=== PATIENT | female | born 1940 | race Caucasian/White ===

== ENCOUNTER → 2021-01-12 | Outpatient (CLI) | payer MEDICARE ==
[~2021-01-12] MED LIST: ASPIR 8181 MG PO; AZO CRANBERRY1 EAC1 PO; NITROSTAT0.4 MG SL; PERCOCET 10-321 EACH PO; PERCOCET 7.5-31 EACH PO; PROZAC40 MG PO; RESTASIS 0.05%1 EACH EYEBOTH; TRAZODONE HCL100 MG PO; VITAMIN D PO
== END ==
LOC: HEART CORB 10:25
DX: R07.2 Precordial pain (principal); R06.02 Shortness of breath; R60.0 Localized edema; R00.2 Palpitations
CPT/HCPCS: 78452; A9502; J2785

== ENCOUNTER 2021-10-02 06:03 | Inpatient (IN) | payer MEDICARE ==
[~2021-10-02] VITALS: Ht 160 cm; Wt 81.6 kg
[2021-10-02 06:52] LABS: RED BLOOD COUNT 4.05 M/UL (4.00-5.10)
[2021-10-02] MEDS ORDERED: BUMETANIDE0.5 MG PO (10:56)
[2021-10-02] MEDS ORDERED: CEFUROXIME500 MG PO (10:57)
[2021-10-02] MEDS ORDERED: ACETAMINOPHEN650 M2 PO (10:58)
[2021-10-02] MEDS ORDERED: CARVEDILOL25 MG PO (11:00)
[2021-10-02] MEDS ORDERED: ELIQUIS5 MG PO (11:00)
[2021-10-02] MEDS ORDERED: HYDROCODON-ACE1 EAC6 PO (11:03)
[2021-10-02] MEDS ORDERED: VALSARTAN40 MG PO (11:05)
[2021-10-02] MEDS ORDERED: BUSPIRONE HCL7.5 MG PO (11:07)
[2021-10-02 13:57] LABS: HEMOGLOBIN 13.2 gm/dl (12.3-15.3); RED BLOOD COUNT 3.82 M/UL (4.00-5.10); WHITE BLOOD COUNT 14.4 K/UL (4.5-11.0)
[2021-10-03 00:42] LABS: WHITE BLOOD COUNT 13.3 K/UL (4.5-11.0)
[2021-10-03 00:43] LABS: RED BLOOD COUNT 3.18 M/UL (4.00-5.10)
[2021-10-04 04:48] LABS: RED BLOOD COUNT 3.16 M/UL (4.00-5.10)
[2021-10-04 04:54] LABS: WHITE BLOOD COUNT 8.5 K/UL (4.5-11.0)
[2021-10-05 01:10] LABS: RED BLOOD COUNT 3.2 M/UL (4.00-5.10); WHITE BLOOD COUNT 10.4 K/UL (4.5-11.0)
[2021-10-06 05:03] LABS: HEMOGLOBIN 12.6 gm/dl (12.3-15.3); RED BLOOD COUNT 3.65 M/UL (4.00-5.10); WHITE BLOOD COUNT 10.8 K/UL (4.5-11.0)
[2021-10-06] MEDS ORDERED: BUMETANIDE1 MG PO (16:04)
[2021-10-06] MEDS ORDERED: AMIODARONE HCL200 MG PO (16:04)
[2021-10-06] MEDS ORDERED: ASPIRIN EC81 MG PO (16:04)
[2021-10-06] MEDS ORDERED: PROTONIX 40 MG40 M1 PO (16:04)
[2021-10-06] MEDS ORDERED: CARVEDILOL3.125 MG PO ×2 (16:04→16:41)
[2021-10-06] MEDS ORDERED: CRESTOR20 MG PO (16:23)
[2021-10-06] MEDS ORDERED: K-TAB ER20 MEQ PO (16:23)
[2021-10-06] MEDS ORDERED: AMOX TR-K CLV1 EAC3 PO ×2 (16:23→16:35)
[2021-10-06] MEDS ORDERED: NITROSTAT0.4 MG SL (16:36)
[2021-10-06] MEDS ORDERED: AMOX TR-K CLV1 EAC4 PO (17:05)
== END 2021-10-06 17:47 | disposition home or self-care (01) | DRG 286 ==
LOC: ER1 06:03 → PROG CARE 08:32 → CDU 08:32 → PROG CARE 16:44
PROVIDERS: Internal Medicine; Physician Assistant; ADMIT Internal Medicine
PROC: B24BZZZ Ultrasonography of Heart with Aorta (ICD-10-PCS; principal; 2021-10-02)
PROC: B216YZZ Fluoroscopy of Right and Left Heart using Other Contrast (ICD-10-PCS; 2021-10-06)
DX: I47.2 Ventricular tachycardia (principal); I50.23 Acute on chronic systolic (congestive) heart failure; I13.0 Hypertensive heart and chronic kidney disease with heart failure and stage 1 through stage 4 chronic kidney disease, or unspecified chronic kidney disease; Z20.822 Contact with and (suspected) exposure to COVID-19; N39.0 Urinary tract infection, site not specified; I31.3 Pericardial effusion (noninflammatory); I48.91 Unspecified atrial fibrillation; Z96.698 Presence of other orthopedic joint implants; B95.2 Enterococcus as the cause of diseases classified elsewhere; F17.200 Nicotine dependence, unspecified, uncomplicated; E87.6 Hypokalemia; E11.649 Type 2 diabetes mellitus with hypoglycemia without coma; N18.30 Chronic kidney disease, stage 3 unspecified; I25.119 Atherosclerotic heart disease of native coronary artery with unspecified angina pectoris; E78.5 Hyperlipidemia, unspecified; E11.22 Type 2 diabetes mellitus with diabetic chronic kidney disease; K21.9 Gastro-esophageal reflux disease without esophagitis; R13.10 Dysphagia, unspecified; I08.1 Rheumatic disorders of both mitral and tricuspid valves; R31.29 Other microscopic hematuria; R74.01 Elevation of levels of liver transaminase levels; Z79.01 Long term (current) use of anticoagulants; Z86.73 Personal history of transient ischemic attack (TIA), and cerebral infarction without residual deficits; Z90.49 Acquired absence of other specified parts of digestive tract; Z79.82 Long term (current) use of aspirin; Z87.81 Personal history of (healed) traumatic fracture; Z80.9 Family history of malignant neoplasm, unspecified; Z80.8 Family history of malignant neoplasm of other organs or systems
CPT/HCPCS: ECHO; 36415; 71045; 80053; 80061; 81001; 82550; 82553; 82607; 82746; 83036; 83735; 83880; 84439; 84443; 84484; 85025; 85610; 85730; 87077; 87086; 87186; 93005; 93306; 96374; 96375; 99152; 99285; C1769; J0153; J0290; J0696; J1170; J1644; J2250; J2270; J3010; J7040; Q9965